=== PATIENT | female | born 1990 | race Caucasian/White ===

== ENCOUNTER → 2016-07-19 | Outpatient (REF) | payer OTHER ==
[~2016-07-19] MED LIST: ACET50TA PO; IBUP-1114 PO; VITAPRTA PO
== END ==
LOC: M LAB REF 18:26
PROVIDERS: ATTEND Obstetrics & Gynecology
DX: Z12.4 Encounter for screening for malignant neoplasm of cervix (principal)

== ENCOUNTER → 2016-11-22 | Outpatient (CLI) | payer OTHER ==
--- NOTE | 2016-11-22 09:56 | REP ---
Obstetric ultrasound for anatomy: There is a single intrauterine gestation in a vertex presentation. There is movement and cardiac activity, the heart rate is 132 beats per minute. The placenta is posterior. There is no previa or abruptio. Placenta is grade zero. The amniotic fluid volume subjectively is normal. The cervix measures 5.1 cm length. By today's ultrasound the gestational age is 18 weeks 4 days with an MARVIN of 04/21/2017. Gestational age by LMP is 18 weeks 5 days. The weight is 250 grams (a 0 pounds, 8 ounces). This is the 44th percentile for 18 weeks 5 days. The following anatomic structures are identified and are unremarkable: Intracranial lateral ventricles, choroid plexus, cerebellum, cavum septum pellucidum, upper lip, lungs, diaphragm, stomach, cord insertion, three-vessel cord, kidneys, bladder, spine and upper lower extremities. Suboptimally demonstrated because of position are the four-chamber view of the heart and the cardiac right and left ventricular outflow tracts. A followup study dedicated to these structures might be considered. Otherwise, there are no anomalies. Signed by Ryan Moise MD 11/22/2016 09:47 A
== END ==
LOC: M RAD 08:43
PROVIDERS: ATTEND Nurse Practitioner Women's Health
DX: Z34.82 Encounter for supervision of other normal pregnancy, second trimester (principal)

== ENCOUNTER → 2016-12-13 | Outpatient (CLI) | payer OTHER ==
--- NOTE | 2016-12-13 21:17 | REP ---
Clinical: Anatomical re-evaluation. Comparison: 11/22/2016 . Findings: Examination demonstrates a single live intrauterine in transverse (head to maternal left) presentation. motion is identified by technologist. Placenta is noted posteriorly and grade zero without evidence for placenta previa or abruption. Amniotic fluid volume is normal. Cervix measures 4.0 cm in length and appears closed. No evidence for nuchal cord. Gestational age by LMP 21 weeks 5 days with MARVIN 04/20/2017 . Gestational age by current measurements 21 weeks 5 days with MARVIN 04/20/2017 . FHR equals 142 beats per minute. Estimated weight 498 grams ( 60th percentile). Anatomical assessment demonstrates normal structures including cranium, choroid plexus, cavum, cerebellum/posterior fossa, lungs, diaphragm, stomach, three-vessel cord, kidneys/bladder, spine, and extremities. Impression: Single live intrauterine in transverse lie demonstrating appropriate interval growth. Limited evaluation of the heart and ventricular outflow tracts again noted. Remainder of the anatomical assessment in conjunction with prior examination appears normal. Signed by Zaire De Jesus MD 12/13/2016 09:08 P
== END ==
LOC: M RAD 14:21
PROVIDERS: ATTEND Nurse Practitioner Women's Health
DX: Z34.92 Encounter for supervision of normal pregnancy, unspecified, second trimester (principal)

== ENCOUNTER 2017-03-28 16:48 | Outpatient (CLI) | payer OTHER ==
[~2017-03-28] VITALS: Ht 152.4 cm; Wt 83.5 kg
[2017-03-28 17:07] VITALS: BP 116/59
== END 2017-03-28 17:48 | disposition home or self-care (01) ==
LOC: M LDO 16:48
PROVIDERS: ATTEND Obstetrics & Gynecology
DX: O36.8130 Decreased fetal movements, third trimester, not applicable or unspecified (principal); Z3A.36 36 weeks gestation of pregnancy

== ENCOUNTER 2017-04-03 02:09 | Inpatient (IN) | payer OTHER ==
[~2017-04-03] VITALS: Ht 152.4 cm; Wt 82.8 kg
[2017-04-03] VITALS (8 sets, daily range): BP systolic 102–123; BP diastolic 55–71
[2017-04-03] MEDS ORDERED: MEASLES,MUMPS,RUBELLA VACCINE INJ (MMR-II) (90707) SC SCH (03:00)
[2017-04-03] MEDS ORDERED: METHYLERGONOVINE MALEATE 0.2 MG/ML VIAL (J2210) IM PRN (03:00)
[2017-04-03] MEDS ORDERED: ONDANSETRON 4MG/2ML VIAL (J2405) IV PRN (03:00)
[2017-04-03] MEDS ORDERED: ACETAMINOPHEN 500 MG TAB PO PRN (03:00)
[2017-04-03] MEDS ORDERED: OXYTOCIN INJ 10 UNITS/ML VIAL (J2590) IM ONE (03:00)
[2017-04-03] MEDS ORDERED: PROMETHAZINE 25 MG TAB PO PRN (03:00)
[2017-04-03] MEDS ORDERED: DIBUCAINE 1% OINTMENT 30GM TOP PRN (03:00)
[2017-04-03] MEDS ORDERED: RHOGAM 300 MCG (1500 IU) INJ (J2790) IM SCH (03:00)
[2017-04-03 03:51] LABS: MEAN CORPUSCULAR HEMOGLOBIN 24.9 pg (27.0-33.0); MEAN CORPUSCULAR HGB CONC 31.5 g/dl (32.0-36.5); MEAN CORPUSCULAR VOLUME 79.2 fl (80.0-96.0); PLATELET COUNT, AUTOMATED 266 10^3/uL (150-450); RED CELL DISTRIBUTION WIDTH 15.1 % (11.5-14.5); WHITE BLOOD COUNT 13.6 10^3/uL (4.0-10.0)
[2017-04-03] MEDS: IBUPROFEN 800 MG TAB PO PRN ×2 (05:53→18:33)
[2017-04-03] MEDS: PRENATAL VITAMINS CHEWABLE TABLET PO SCH ×2 (08:33→09:15)
[2017-04-03] MEDS: DOCUSATE SODIUM 100 MG CAP PO SCH ×2 (08:33→21:12)
[2017-04-04 06:00] VITALS: BP 93/52
--- NOTE | 2017-04-04 06:19 | IPNPDOC ---
Progress Note Date of Service Apr 04, 2017 Progress Note PPD 1 Sandra is a 26yo [id number] s/p uncomplicated at 37+wk after presenting in active labor, doing well on PPD1. She is tolerating regular diet, ambulating and voiding spontaneously without issue. She is bottle feeding per her preference. Vaginal bleeding is minimal. No complaints. No f/c/n/v/CP/SOB. Vitals wnl, afebrile General: WDWN, resting comfortably in bed Abdomen: soft, NT, ND, fundus firm at u-2cm Extremities: no pain with palpation of calves bilaterally Assessment: Sandra is a 26yo [id number] s/p uncomplicated at 37+wk doing well on PPD1. Vitals wnl, exam benign. Hemodynamically stable with no e/o infection. Plan: -Routine care -tylenol/motrin prn pain -regular diet -encourage ambulation -GBS status was unknown, so baby will need to stay another day- likely discharge to home tomorrow Dr. Jennifer Simpson MD [facility] VS, I&O, 24H, Count Includes [facility] Vital Signs/I&O Vital Signs Date Time Temp Pulse Resp B/P (MAP) Pulse Ox O2 Delivery O2 Flow Rate FiO2 04/04/17 06:00 97.9 81 16 93/52 (66) 99 Room Air Laboratory Data 24H LABS Laboratory Tests 2 04/03/17 08:30: Urine Amphetamines Screen NEGATIVE, Urine Benzodiazepines Screen NEGATIVE, Urine Opiates Screen NEGATIVE, Urine Methadone Screen NEGATIVE, Urine Barbiturates Screen NEGATIVE, Urine Phencyclidine Screen NEGATIVE, Urine Cocaine Metabolite Screen NEGATIVE, Urine Cannabinoids Screen NEGATIVE Jennifer Simpson MD Apr 04, 2017 06:19
[2017-04-04] MEDS: DOCUSATE SODIUM 100 MG CAP PO SCH ×2 (07:55→21:00)
[2017-04-04] MEDS: PRENATAL VITAMINS CHEWABLE TABLET PO SCH (08:33)
[2017-04-04 18:00] VITALS: BP 111/56
[2017-04-05] MEDS: IBUPROFEN 800 MG TAB PO PRN (04:13)
[2017-04-05 06:08] VITALS: BP 100/70
[2017-04-05] MEDS: DOCUSATE SODIUM 100 MG CAP PO SCH (07:59)
[2017-04-05] MEDS: PRENATAL VITAMINS CHEWABLE TABLET PO SCH (07:59)
--- NOTE | 2017-04-05 10:45 | DS.PDOC ---
Discharge Summary General Date of Admission Apr 03, 2017 at 02:15 Date of Discharge [id number] Discharge Summary Discharge Summary Admission Diagnosis: active labor at term Discharge Diagnosis: s/p uncomplicated spontaneous vaginal delivery Condition: stable Meds on discharge: standard meds Hospital Course: Pt is a 26 yo female admitted in active labor at term. The pt progressed well through labor and had an uncomplicated . Please see delivery note for details. On PPD#2, the pt had normal VS, the pt was tolerating reg diet , ambulating, pain was well controlled, minimal lochia. She was desirous of discharge and was discharged home on PPD#2 with follow up in 6-8wks in OB clinic. Home recommendations: Nothing in vagina for 6 weeks Vital Signs/I&Os Vital Signs Date Time Temp Pulse Resp B/P (MAP) Pulse Ox O2 Delivery O2 Flow Rate FiO2 04/05/17 06:08 97.7 71 16 100/70 (80) Room Air 04/04/17 06:00 99 Discharge Medications Scheduled Multivit/Min/Pren/Fol Ac/Iron ( Rx) 1 Tab Tab, 1 TAB PO DAILY, (Reported ) Allergies Coded Allergies: No Known Allergies (Unverified , 11/12/15) SESSIONS,LINDA Rios MD Apr 05, 2017 10:45
--- NOTE | 2017-04-05 10:49 | IPNPDOC ---
Text Note Date of Service The patient was seen on 04/05/17. NOTE PPD 2 Sandra is a 26yo [id number] s/p uncomplicated at 37+wk after presenting in active labor, doing well on PPD2. She is tolerating regular diet, ambulating and voiding spontaneously without issue. She is bottle feeding per her preference. Vaginal bleeding is minimal. No complaints. No f/c/n/v/CP/SOB. Vitals wnl, afebrile General: WDWN, resting comfortably in bed Abdomen: soft, NT, ND, fundus firm at u-2cm Extremities: no pain with palpation of calves bilaterally Assessment: Sandra is a 26yo [id number] s/p uncomplicated at 37+wk doing well on PPD2. Vitals wnl, exam benign. Hemodynamically stable with no e/o infection. D/C to home. Sessions VS,Nino, I+O VS, Nino, I+O Vital Signs Date Time Temp Pulse Resp B/P (MAP) Pulse Ox O2 Delivery O2 Flow Rate FiO2 04/05/17 06:08 97.7 71 16 100/70 (80) Room Air 04/04/17 06:00 99 SESSIONS,LINDA Rios MD Apr 05, 2017 10:49
[2017-04-05] MEDS ORDERED: COLA100C5 PO (11:11)
[2017-04-05] MEDS ORDERED: ACET50TA PO (11:11)
[2017-04-05] MEDS ORDERED: IBUP-1114 PO (11:11)
== END 2017-04-05 12:45 | disposition home or self-care (01) | DRG 775 ==
LOC: M LDO 02:09 → M LDI 02:15 → M OBS 05:00
PROVIDERS: ADMIT Obstetrics & Gynecology; ATTEND Obstetrics & Gynecology
PROC: 10E0XZZ Delivery of Products of Conception, External Approach (ICD-10-PCS; principal; 2017-04-03)
DX: O80 Encounter for full-term uncomplicated delivery (principal); Z37.0 Single live birth; Z3A.37 37 weeks gestation of pregnancy

== ENCOUNTER 2017-07-12 06:32 | Day surgery (SDC) | payer OTHER ==
[2017-07-12] MEDS ORDERED: PROPOFOL 200 MG/20 ML VIAL As Ordered (06:40)
[2017-07-12] MEDS ORDERED: LIDOCAINE 2% INJ 100 MG/5 ML SDV (FOR ANES.) As Ordered (06:41)
[2017-07-12] MEDS ORDERED: ROCURONIUM BROMIDE 50 MG/5 ML VIAL As Ordered (06:43)
[2017-07-12] MEDS ORDERED: MIDAZOLAM INJ 2 MG/2 ML VIAL (J2250) As Ordered (06:49)
[2017-07-12] MEDS ORDERED: fentaNYL 100 MCG/2 ML INJECTION (J3010) As Ordered (06:50)
[2017-07-12] MEDS ORDERED: NEOSTIGMINE 10 MG/10 ML VIAL (J2710) As Ordered (06:52)
[2017-07-12] MEDS ORDERED: GLYCOPYRROLATE INJ 0.2 MG/ML 2 ML VIAL As Ordered (06:53)
[2017-07-12] MEDS ORDERED: KETOROLAC 60 MG/2 ML VIAL (J1885) As Ordered (07:00)
[2017-07-12 07:06] LABS: HEMATOCRIT 42.7 % (36.0-47.0); HEMOGLOBIN 13.8 g/dl (12.0-16.0); MEAN CORPUSCULAR HEMOGLOBIN 26.3 pg (27.0-33.0); MEAN CORPUSCULAR HGB CONC 32.3 g/dl (32.0-36.5); MEAN CORPUSCULAR VOLUME 81.3 fl (80.0-96.0); PLATELET COUNT, AUTOMATED 256 10^3/uL (150-450); RED BLOOD COUNT 5.25 10^6/uL (4.00-5.40); RED CELL DISTRIBUTION WIDTH 13.4 % (11.5-14.5); WHITE BLOOD COUNT 8.1 10^3/uL (4.0-10.0)
[2017-07-12] MEDS: LR 1,000 ML IV (07:17)
[2017-07-12 07:23] LABS: HCG, SERUM QUANTITATIVE < 1.0 MIU/ML
[2017-07-12] MEDS: BUPIVACAINE HCL 0.25% 30 ML VIAL As Ordered (08:42)
[2017-07-12] MEDS ORDERED: fentaNYL 100 MCG/2 ML INJECTION (J3010) IV (09:45)
[2017-07-12] MEDS ORDERED: LR 1,000 ML IV (09:45)
[2017-07-12] MEDS ORDERED: PERCOCET 5MG/325MG TAB PO (09:45)
[2017-07-12] MEDS ORDERED: METOCLOPRAMIDE INJ 10MG/2ML VIAL (J2765) IV (09:45)
[2017-07-12] MEDS ORDERED: MEPERIDINE INJ 25 MG/ML VIAL (J2175) IV (09:45)
[2017-07-12] MEDS ORDERED: ONDANSETRON 4MG/2ML VIAL (J2405) IV (09:45)
== END 2017-07-12 11:37 | disposition home or self-care (01) ==
LOC: M SDC 06:32
DX: Z30.2 Encounter for sterilization (principal)
CPT/HCPCS: 58661